=== PATIENT | female | born 2005 | race Caucasian/White ===

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

== ENCOUNTER → 2023-04-15 | Outpatient (REF) | payer OTHER ==
[2023-04-15 13:07] LABS: MEAN CORPUSCULAR HEMOGLOBIN 30.5 pg (27.0-33.0); MEAN CORPUSCULAR VOLUME 89.5 fl (80.0-96.0); PLATELET COUNT, AUTOMATED 358 10^3/uL (150-450); RED BLOOD COUNT 5.25 10^6/uL (4.00-5.40); WHITE BLOOD COUNT 9.4 10^3/uL (4.0-10.0)
[2023-04-15 13:28] LABS: ALBUMIN 3.5 G/DL (3.2-5.2); ALKALINE PHOSPHATASE 87 U/L (46-116); ALT/SGPT 66 U/L (7.0-40); AST/SGOT 32 U/L (<34); BILIRUBIN,TOTAL 0.6 MG/DL (0.3-1.2); BLOOD UREA NITROGEN 13 MG/DL (9-23); CALCIUM LEVEL 9.2 MG/DL (8.5-10.1); CARBON DIOXIDE LEVEL 24 MMOL/L (20-31); CHLORIDE LEVEL 108 MMOL/L (98-107); CHOLESTEROL LEVEL 202 MG/DL (<200); CREATININE FOR GFR 0.51 MG/DL (0.55-1.30); GLUCOSE, FASTING 112 MG/DL (60-100); HDL CHOLESTEROL 43.9 MG/DL (>40); LDL CHOLESTEROL 112.7 MG/DL (<100); NON-HDL-C 158.1 MG/DL; POTASSIUM SERUM 4.2 MMOL/L (3.5-5.1); SODIUM LEVEL 143 MMOL/L (136-145); TRIGLYCERIDES LEVEL 227 MG/DL (<150)
[2023-04-15 13:34] LABS: THYROID STIMULATING HORMONE 6.818 uIU/ML (0.48-4.17)
== END ==
LOC: M LAB REF 12:18
PROVIDERS: ATTEND Nurse Practitioner Family
DX: R03.0 Elevated blood-pressure reading, without diagnosis of hypertension (principal); E78.5 Hyperlipidemia, unspecified; E66.9 Obesity, unspecified

== ENCOUNTER → 2024-01-29 | Outpatient (CLI) | payer OTHER | LOC: M LAB 08:42 | PROVIDERS: ATTEND Physician Assistant Medical | DX: E28.2 Polycystic ovarian syndrome (principal); L83 Acanthosis nigricans ==

== ENCOUNTER 2025-07-07 08:02 | Observation (INO) | payer OTHER ==
[~2025-07-07] VITALS: Ht 162.6 cm; Wt 161.4 kg
[2025-07-07] VITALS (9 sets, daily range): BP systolic 115–128; BP diastolic 63–83; TEMP 96.8–98.8; O2SAT 93–97
[~2025-07-07 08:02] MED LIST changes: +LIDOCAINE 2% 100 MG/5 ML SDV (FOR ANES.) As Ordered ONE; +ONDANSETRON 4MG 2ML VIAL As Ordered ONE; +ROCURONIUM BROMIDE 50MG/5ML VIAL As Ordered ONE; +SUGAMMADEX SODIUM 500 MG/5 ML VIAL As Ordered ONE; +dexAMETHasone 4 MG/ML 1 ML VIAL As Ordered ONE
[2025-07-07] MEDS ORDERED: LR 1,000 ML IV SCH (08:45)
[2025-07-07] MEDS ORDERED: MIDAZOLAM INJ 2 MG/2 ML VIAL As Ordered ONE (09:21)
[2025-07-07] MEDS: OXYMETAZOLINE 0.05% NASAL SPRAY As Ordered ONE (10:45)
[2025-07-07] MEDS: AMPICILLIN SOD/SULBACTAM SOD 3 GM in D5W MINI-BAG 100 ML IV ONE (10:52)
[2025-07-07] MEDS: CHLORHEXIDINE GLUCONATE 0.12% 15 ML UDC As Ordered ONE (11:12)
[2025-07-07] MEDS ORDERED: ACETAMINOPHEN 1000MG/100ML IV BAG As Ordered ONE (11:24)
[2025-07-07] MEDS ORDERED: GLYCOPYRROLATE INJ 0.2 MG/ML 2 ML VIAL As Ordered ONE (11:29)
[2025-07-07] MEDS: LR 1,000 ML IV SCH (11:45)
[2025-07-07] MEDS ORDERED: HYDROMORPHONE HCL 0.5 MG/0.5 ML SYRINGE IV PRN (11:45)
[2025-07-07] MEDS ORDERED: ONDANSETRON 4MG 2ML VIAL IV PRN (12:20)
[2025-07-07] MEDS ORDERED: CHLORASEPTIC SPRAY MT PRN ×2 (12:20→13:35)
[2025-07-07 13:07] LABS: PLATELET COUNT, AUTOMATED 309 10^3/uL (150-450)
[2025-07-07] MEDS ORDERED: CHLORASEPTIC SPRAY MT ONE (13:30)
[2025-07-07 13:34] LABS: ALT/SGPT 53.0 U/L (7.0-40); AST/SGOT 28.0 U/L (<34); CHOLESTEROL LEVEL 196.0 MG/DL (<200); CHOLESTEROL RISK RATIO 4.9 (<5); LDL CHOLESTEROL 129.2 MG/DL (<100); NON-HDL-C 156.0 MG/DL; TRIGLYCERIDES LEVEL 134.0 MG/DL (<150)
[2025-07-07] MEDS: dexAMETHasone 4 MG/ML 1 ML VIAL IV ONE (14:05)
[2025-07-07 14:25] LABS: CALCIUM LEVEL 8.7 MG/DL (8.5-10.1); CARBON DIOXIDE LEVEL 22 MMOL/L (20-31); CHLORIDE LEVEL 106 MMOL/L (98-107); CREATININE FOR GFR 0.57 MG/DL (0.55-1.30); GLOMERULAR FILTRATION RATE > 90.0 (>60); POTASSIUM SERUM 4.0 MMOL/L (3.5-5.1); SODIUM LEVEL 142 MMOL/L (136-145)
[2025-07-07] MEDS: CHLORASEPTIC SPRAY MT ONE (14:34)
[2025-07-07] MEDS: KETOROLAC 30 MG/ML 1 ML VIAL IV ONE (14:35)
[2025-07-07 15:32] LABS: ESTIMATED AVERAGE GLUCOSE 97.0 MG/DL (60-110)
[2025-07-07] MEDS: RIZATRIPTAN BENZOATE 10 MG TAB PO ONE (16:13)
[2025-07-07] MEDS: ACETAMINOPHEN 325 MG TAB PO PRN (22:03)
[2025-07-08 03:54] VITALS: BP 141/71; TEMP 97.5; O2SAT 95
[2025-07-08] MEDS ORDERED: HOME MED LIST COMPLETE! XX SCH (07:45)
[2025-07-08 08:07] VITALS: BP 136/73; TEMP 98.1; O2SAT 94
[2025-07-08] MEDS ORDERED: CHLORSP MT (08:31)
[2025-07-08] MEDS ORDERED: ACET-683 PO (08:31)
== END 2025-07-08 09:30 | disposition home or self-care (01) ==
LOC: M SDC 08:02 → M RR INP 08:03 → M MSPAV 13:21
PROVIDERS: ADMIT General Practice; ATTEND General Practice
DX: K01.1 Impacted teeth (principal); K21.9 Gastro-esophageal reflux disease without esophagitis; F41.9 Anxiety disorder, unspecified; F32.A Depression, unspecified; R74.01 Elevation of levels of liver transaminase levels; E78.5 Hyperlipidemia, unspecified; E66.01 Morbid (severe) obesity due to excess calories; G47.33 Obstructive sleep apnea (adult) (pediatric)
CPT/HCPCS: 36415; 80048; 80061; 80076; 81025; 83036; 84443; 85027; 88300; 96374; 96375; D7210; D9223; J0131; J0295; J0666; J1100; J1596; J1885; J2250; J2405; J2765; J3010